=== PATIENT | male | born 1995 | race Two or more races ===

== ENCOUNTER 2024-08-15 12:20 | Emergency (ER) | payer OTHER, SELFPAY ==
[2024-08-15 12:21] VITALS: BMI 25.8
[2024-08-15 12:40] VITALS: BP 112/75; PULSE 125; RESP 18; TEMP 36.8; O2SAT 96
--- NOTE | 2024-08-15 12:52 | PC.CC ---
Heather BUCIO was consulted by LIGIA Vergara regarding providing resources for Alcohol and other Substances to the patient. Heather BUCIO made face to face contact with patient introduced self, role, and reason for visit. Patient appeared alert and oriented to self, location, and situation. TADEOW provided Substance Abuse resources to patient, [facility] Resource Guide, and Warm Hotline Number.
--- NOTE | 2024-08-15 12:55 | EDNOTE_ITS ---
ED Alcohol RME/HPI General Chief Complaint: Alcohol Stated Complaint: ALCOHOL WITHDRAWL; ASKING FOR HELP Time Seen by Provider: 08/15/24 12:35 Source: patient Arrival date/time: 08/15/24 12:20 29-year-old male with no known medical history presents to the emergency room with a chief complaint of needing resources for alcohol withdrawal. Patient states has been drinking for the last 4 days. Patient states last drink was yesterday at 11 PM. Mode of arrival: ambulatory Limitations: no limitations Related Data Allergies Allergy/AdvReac Type Severity Reaction Status Date / Time No Known Allergies Allergy Verified 08/15/24 12:25 Past Medical History Social History SMOKING STATUS: Never smoker ED Exam General Limitations: Present no limitations General appearance: Present alert and in no apparent distress Head Head exam: Present atraumatic, normocephalic and normal inspection Eye Eye exam: Present normal appearance, PERRL and EOMI ENT ENT exam: Present normal exam, normal oropharynx and mucous membranes moist Neck Neck exam: Present normal inspection, full ROM and trachea midline Chest Chest inspection: Present normal inspection and symmetric chest wall rise Respiratory Respiratory exam: Present normal lung sounds bilaterally Cardiovascular Cardiovascular exam: Present regular rate, normal rhythm and normal heart sounds Abdominal Exam Abdominal exam: Present soft and normal bowel sounds Extremities Exam Extremities exam: Present normal inspection and full ROM Back Exam Back exam: Present normal inspection and full ROM Neurological Exam Neurological exam: Present alert, oriented X3 and CN II-XII intact Psychiatric Psychiatric exam: Present normal affect and normal mood Skin Skin exam: Present warm, dry, intact and normal color Course Quality Measures none Orders Category Date Time Status Alcohol, Blood Medical Stat Lab 08/15/24 12:46 Completed CBC Stat Lab 08/15/24 12:46 Completed CMP [Comprehensive Metabolic Panel] Stat Lab 08/15/24 12:46 Completed Vital Signs Vital signs: Vital Signs Temperature 98.2 F 08/15/24 12:40 Pulse Rate 125 H 08/15/24 12:40 Respiratory Rate 18 08/15/24 12:40 Blood Pressure 112/75 08/15/24 12:40 Pulse Oximetry (%) 96 08/15/24 12:40 Oxygen Delivery Method Room Air 08/15/24 12:40 O2 saturation 96% within normal limits Discharge Plan Plan Patient Disposition: HOME (Self Care) Disposition Comment: Stable Prescriptions/Referrals Referrals: No Primary/Family,Physician [Primary Care Provider] - In 1 week Problem List Clinical Impression: Alcoholic intoxication Patient/Caregiver Discharge Instructions Education Materials: ED Alcohol Intoxication Additional Instructions: Please follow-up with your primary care provider in the next 24 to 48 hours. Your blood work was negative for any acute findings. There are no signs of dehydration. library services coordinator spoke to you and gave you resources for alcohol cessation. For any evidence of worsening signs or symptoms return to the emergency room immediately Print Language: Kyrgyz Stand Alone Forms: Aleksandra Award Info., Patient Portal Info Letter PA/DANNY Supervising Physician PA/DANNY Supervising Physician: Dr Anil Olsen MDM Narrative MDM Narrative: 29-year-old male with no known medical history presents to the emergency room with a chief complaint of needing resources for alcohol withdrawal. Patient states has been drinking for the last 4 days. Patient states last drink was yesterday at 11 PM. Patient is hemodynamically stable and in no apparent distress Physical examination shows a normal neurological exam. The patient is a GCS of 15 he is alert and oriented x 3. Pupils are PERRLA EOMs are intact the patient has a normal steady gait. At this time the patient does not appear intoxicated. Patient states he has been drinking for the last 4 days and is here to get resources on how to enter rehab facility for his alcoholism. library services coordinator worker Shannon was contacted and she went into the patient's room to give the patient resources for his alcoholism. CBC CMP were negative for any acute findings. EtOH level was 81 Patient was discharged and educated to follow-up with primary care provider in the next 24 to 48 hours and return to the emergency room for any evidence of worsening signs or symptoms Patient data External records reviewed:: [facility] previous records Clinical information provided by:: patient Social determinants that could affect healthcare access:: none Patient has the following chronic illnesses:: No chronic illness How is presenting disease/condition affected by chronic disease/condition?: no chronic disease Evaluation data The following diagnostics were reviewed and interpreted by me:: lab results and radiology exam(s) Lab and/or radiology exams considered but not ordered:: Labs and radiology exams considered and ordered Interpretation Summary: N/A Medications / Prescriptions Medications or Prescriptions considered but not ordered:: No medication given Medication administrations:: No medication given Consultations Consultation(s) initiated? (list below): No Diagnosis Differential diagnosis alcohol: alcohol withdrawal delirium, alcohol intoxication, alcohol withdrawal syndrome and alcohol withdrawal seizure Most likely diagnosis given after review of the tests above:: Alcohol intoxication Admission Indicated Admission indicated?: not indicated Admission Request Was there a request for admission?: No Disposition Plan Disposition Plan: Discharge Discharge Attestation Discharge Attestation: The patient and all family members were given an opportunity to ask questions and understood the discharge instructions. Discharge instructions specifically effects, indications for sooner follow up or return to the emergency department, and the expected course of current diagnosis. Patient condition: Stable
[2024-08-15 13:04] LABS: Basophils # (Auto) 0.1 Thou/mm3 (0.0-0.2); Basophils % (Auto) 1 % (0-2.5); Eosinophils % (Auto) 0 % (0-10); Hematocrit 45.4 % (41.0-53.0); Immature Granulocytes % (Auto) 0 % (0-0); Immature Granulocytes Auto 0.03 Thou/mm3 (0.00-0.00); Lymphocytes # (Auto) 1.6 Thou/mm3 (1.0-4.8); Lymphocytes % (Auto) 14 % (10-50); Mean Corpuscular HGB Conc 35.2 g/dl (31.0-37.0); Mean Corpuscular Hemoglobin 30.9 pg (25.0-35.0); Mean Corpuscular Volume 88 fL (80-100); Monocytes # (Auto) 0.3 Thou/mm3 (0.0-0.8); Monocytes % (Auto) 3 % (0-12); Neutrophils # (Auto) 9.5 Thou/mm3 (1.8-7.7); Neutrophils % (Auto) 82 % (37-80); Nucleated Red Blood Cell % 0 /100 WBC (0); Platelet Count 390 Thou/mm3 (140-440); RDW Standard Deviation 40.2 fL (35.1-43.9); Red Blood Count 5.18 Miln/mm3 (4.50-5.90); White Blood Count 11.6 Thou/mm3 (3.8-10.6)
[2024-08-15 13:25] LABS: Alanine Aminotransferase 41 U/L (10-49); Albumin, Serum 4.8 gm/dL (3.5-5.0); Albumin/Globulin Ratio 1.4 (1.2-2.2); Alcohol, Blood Medical 82.1 mg/dL (0-10.0); Alkaline Phosphatase 99 U/L (46-116); Anion Gap 23 (7-16); Aspartate Amino Transferase 42 U/L (0-34); BUN/Creatinine Ratio 12 Ratio (12-20); Bilirubin,Total 1.1 mg/dL (0.3-1.2); Blood Urea Nitrogen 11 mg/dL (9-23); Calcium 9.3 mg/dL (8.3-10.6); Calcium (Corrected) 9.3 mg/dL (8.5-10.1); Carbon Dioxide 19.5 mMol/L (20.0-31.0); Chloride 94 mMol/L (98-107); Creatinine (Component) 0.9 mg/dL (0.6-1.3); Estimated Creatinine Clearance 123.9 mL/min (>60); Globulin 3.5 gm/dL (2.3-3.5); Glucose 106 mg/dL (74-106); Osmolality,Calculated 271 (275-295); Potassium 3.8 mMol/L (3.4-5.1); Sodium 136 mMol/L (136-145); Total Protein 8.3 gm/dL (5.7-8.2); eGFR > 60 See Note
== END 2024-08-15 14:46 | disposition home or self-care (01) ==
PROVIDERS: Nurse Practitioner Family; Emergency Provider Emergency Medicine
DX: F10.129 Alcohol abuse with intoxication, unspecified (principal); Y90.4 Blood alcohol level of 80-99 mg/100 ml
CPT/HCPCS: 36415; 80053; 80320; 85025; 99283; G0480